=== PATIENT | male | born 1970 | race Hispanic/Latino ===

== ENCOUNTER → 2020-08-13 | Outpatient (CLI) | payer OTHER ==
[~2020-08-13] MED LIST: ALBUTEROL SULFATE 0.083% 2.5 MG/3 ML INH IH ONE
== END | disposition home or self-care (01) ==
LOC: RAH 09:13
PROVIDERS: ATTEND Orthopaedic Surgery
DX: I34.0 Nonrheumatic mitral (valve) insufficiency (principal); R01.1 Cardiac murmur, unspecified; E78.5 Hyperlipidemia, unspecified; R55 Syncope and collapse
CPT/HCPCS: 93306; 94060